=== PATIENT | female | born 1955 | race Caucasian/White ===

== ENCOUNTER → 2017-07-19 | Outpatient (CLI) | payer BC ==
--- NOTE | 2017-07-19 11:01 | US ---
History: Abnormal MRI questionable left ovarian abnormality Exam: Pelvic ultrasound Comparison: None Technique: Multiple grayscale and color flow Doppler transvaginal images of the pelvis were obtained. Findings: The uterus has been removed. The ovaries are not visualized. No adnexal mass or free fluid is seen. IMPRESSION: Status post hysterectomy . Nonvisualization of the ovaries with no adnexal mass or free fluid. Reported By:
--- NOTE | 2017-07-22 08:35 | MRI ---
MRI SPINE THORACIC WITHOUT AND WITH CONTRAST CLINICAL HISTORY: 61-year-old female with low and mid back pain. Patient with history of spinal steno sis and neurogenic claudication. COMPARISON: None. TECHNIQUE: Multiplanar, multisequence MRI images of the thoracic spine were obtained prior to and fo llowing the uneventful intravenous administration of 20 mL Omniscan. FINDINGS: Mildly exaggerated thoracic kyphosis as imaged. Alignment is maintained. Vertebral body and intervert ebral disc space height are normal. Probable hemangiomas T3 and T5 with the remaining marrow signal n ormal. Disc signal is normal. Cord signal is normal. At T3-T4: Central disc protrusion impinges the central cord with contour deformity along the ventral aspect without cord signal change. Central canal and neural foramen are widely patent. At T4-5: Left central disc protrusion impinges and produces flattening of the left ventral cord witho ut cord signal change. Central canal and neural foramina widely patent. At T7-T8: Small left disc protrusion produces subtle flattening of the left ventral cord without sign al change. Central canal and neural foramina widely patent. At T8-T9: Small left disc protrusion produces subtle flattening of the left ventral cord without cord signal change. The central canal and neural foramen are widely patent. At T10-T11: Small left disc protrusion produces subtle flattening of the left ventral cord without co rd signal change. Central canal and neural foramina widely patent. At T11-T12: Large symmetric disc bulge with moderate facet arthropathy narrows the canal to 11.8 mm. No neural foraminal stenosis. Subtle flattening of the ventral cord without cord signal change. There is no evidence of abnormal enhancement within the thoracic spine. Paraspinous soft tissues are unremarkable. IMPRESSION: 1. Multilevel disc degeneration and spondyloarthropathy with cord impingement/contour deformities wit hout cord signal change to suggest edema or myelomalacia as described above. 2. See level by level descriptions above. 3. No abnormal enhancement of the thoracic spine. Reported By:
--- NOTE | 2017-07-22 09:25 | MRI ---
MRI SPINE LUMBAR WITHOUT AND WITH CONTRAST CLINICAL HISTORY: 61-year-old female with history of spinal stenosis within the lumbar region with lo w back pain. COMPARISON: MR lumbar spine without contrast 07/08/2017. Technique: Axial and sagittal T1 fat saturated postcontrast sequences as well as axial T2 sequence w ere obtained following the uneventful administration of 20 mL Omniscan intravenously. FINDINGS: Region of concern noted on noncontrast MR lumbar spine at the left L5-S1 level demonstrates signal ch aracteristics most consistent with chronic disc extrusion. This region demonstrates subtle/mild T2 he terogenous hyperintensity with peripheral enhancement. Findings most consistent with evolving discal cyst development. There is significant compressive deformity of the exiting left L5 nerve root at thi s level. There is subtle enhancement within the facet joints from L4-S1 with severe degenerative arth ropathy again demonstrated. Dorsal, subcentimeter, bilateral enhancing cystic lesions at the L4-L5 an d L5-S1 facets consistent with synovial cysts. Mild inflammation and enhancement within the paraspino us soft tissues L4-S1. IMPRESSION: 1. Area of concern noted on noncontrast MR lumbar spine at the L5-S1 left subarticular recess demonst rates imaging characteristics and enhancement pattern most consistent with chronic disc extrusion wit h evolving discal cyst development. 2. Chronic, severe, degenerative changes L4-S1 with smoldering facetitis at these levels, most pronou nced L5-S1, with dorsal synovial cysts bilaterally at these levels. 3. Otherwise unchanged. Reported By:
== END ==
LOC: RAD 10:11
PROVIDERS: ATTEND Internal Medicine
DX: M48.04 Spinal stenosis, thoracic region (principal); M48.062 Spinal stenosis, lumbar region with neurogenic claudication; R22.2 Localized swelling, mass and lump, trunk; N83.8 Other noninflammatory disorders of ovary, fallopian tube and broad ligament
CPT/HCPCS: 72149; 72157; 76830